=== PATIENT | male | born 1940 | race Caucasian/White ===

== ENCOUNTER 2016-08-19 12:45 | Inpatient (IN) | payer MEDICARE, OTHER ==
[~2016-08-19] VITALS: Ht 157.5 cm; Wt 64.2 kg
[2016-08-19] MEDS ORDERED: SOD CHLORIDE 0.9% 500 ML IV STA (13:07)
[2016-08-19] MEDS ORDERED: RAMI5CAP46 PO (13:19)
[2016-08-19 13:26] LABS: ADD SCAN DIFF NO
[2016-08-19 13:30] LABS: ABNORMAL IP MESSAGE 1; HEMATOCRIT 21.4 % (42.0-52.0); MEAN CORPUSCULAR HEMOGLOBIN 18.1 pg (29.0-33.0); MEAN CORPUSCULAR HGB CONC 27.6 g/dl (32.0-37.0); MEAN CORPUSCULAR VOLUME 65.6 fl (82.0-101.0); MEAN PLATELET VOLUME 8.4 fl (7.4-10.4); PLATELET COUNT 700 10^3/UL (140-415); RED BLOOD COUNT 3.26 10^6/ul (4.70-6.10); RED CELL DISTRIBUTION WIDTH 19.2 % (11.5-14.5)
[2016-08-19 13:37] LABS: HEMOGLOBIN 5.9 g/dl (14.0-18.0)
[2016-08-19 13:39] LABS: ALBUMIN 2.8 g/dl (3.3-4.9); CHLORIDE 97 mmol/L (97-110); SODIUM 126 mmol/L (135-144)
[2016-08-19 13:39] LABS: ADD UMIC YES; URINE BILIRUBIN (Dip) 1+ (NEGATIVE); URINE BLOOD (Dip) NEGATIVE (NEGATIVE); URINE COLOR YELLOW (YELLOW); URINE GLUCOSE (Dip) NEGATIVE (NEGATIVE); URINE KETONES (Dip) NEGATIVE (NEGATIVE); URINE LEUKOCYTE ESTERASE (Dip) 1+ (NEGATIVE); URINE NITRITE (Dip) NEGATIVE (NEGATIVE); URINE TOTAL PROTEIN (Dip) TRACE (NEGATIVE); URINE UROBILINOGEN (Dip) >8.0 E.U./dL (0.1-1.0)
[2016-08-19 13:40] LABS: POTASSIUM 3.6 mmol/L (3.5-5.1)
[2016-08-19 13:42] LABS: ALANINE AMINOTRANSFERASE 30 IU/L (13-69); ALBUMIN/GLOBULIN RATIO 0.84; ALKALINE PHOSPHATASE 220 IU/L (42-121); ANION GAP 8 (8-16); ASPARTATE AMINO TRANSFERASE 43 IU/L (15-46); BILIRUBIN,INDIRECT 0.5 mg/dl (0-1.1); BILIRUBIN,TOTAL 0.5 mg/dl (0.2-1.3); BLOOD UREA NITROGEN 8 mg/dl (7-20); CALCIUM 7.3 mg/dl (8.4-10.2); CARBON DIOXIDE 25 mmol/L (21-31); CREATININE 0.52 mg/dl (0.61-1.24); GLUCOSE 136 mg/dl (70-220); TOTAL PROTEIN 6.1 g/dl (6.1-8.1)
[2016-08-19 13:50] LABS: ICTOTEST NEGATIVE (NEGATIVE)
[2016-08-19 13:52] LABS: SQUAMOUS EPITHELIAL CELL,UR OCCASIONAL; URINE RBCS NONE SEEN /HPF (0)
[2016-08-19 13:54] LABS: TROPONIN-I < 0.012 ng/ml (0.00-0.12)
--- NOTE | 2016-08-19 13:54 | ERA ---
ER Documentation Chief Complaint Date/Time DATE: 08/19/16 TIME: 13:53 Chief Complaint gen weakness and more lethargic for the past 2 wks progressively worse HPI 76-year-old man brought in by family members for 2 weeks of generalized weakness , dizziness, peripheral edema, and recent mild confusion. Patient has a history of alcoholism and drinks alcohol daily. Patient and family members deny recent melena or blood per rectum, no vomiting or diarrhea, no complaints of chest pain or shortness of breath, no loss of consciousness. Patient has no history of anemia or blood transfusion. ROS All systems reviewed and are negative except as per history of present illness. Medications Home Meds Reported Medications Ramipril (Ramipril) Unknown Strength Capsule, PO DAILY, CAP 08/19/16 Allergies Allergies: Coded Allergies: No Known Allergy (Unverified , 08/19/16) PMhx/Soc Alcoholism, hypertension Medical and Surgical Hx: pt denies Medical Hx, pt denies Surgical Hx History of Surgery: No Anesthesia Reaction: No Hx Neurological Disorder: No Hx Respiratory Disorders: No Hx Cardiac Disorders: Yes (htn) Hx Psychiatric Problems: No Hx Miscellaneous Medical Probl: No Hx Alcohol Use: Yes Hx Substance Use: No Hx Tobacco Use: No Smoking Status: Never smoker FmHx Family History: No diabetes Physical Exam Vitals Vital Signs Date Time Temp Pulse Resp B/P Pulse Ox O2 Delivery O2 Flow Rate FiO2 08/19/16 12:53 98.9 105 22 123/58 100 Physical Exam GENERAL: Well-developed, well-nourished, appears dehydrated HEENT: Dry mucous membranes, pale conjunctiva, no cervical spine tenderness or step-off deformities, no goiter, extraocular movements intact without pain. No submandibular induration, and no pharyngeal erythema NEURO: Alert and oriented 3, cranial nerves II through XII intact bilaterally, pupils equal round reactive to light, no focal deficits or facial asymmetry, sensation intact distally Strength 5/5 in upper and lower extremities bilaterally CARDIAC: Tachycardic and regular, no murmurs rubs or gallops LUNGS: Clear bilaterally no wheezing crackles or stridor ABDOMEN: Positive hepatomegaly, nontender abdomen, normoactive bowel sounds SKIN: Warm and dry to touch, no abrasions, contusions, or hematomas, no lacerations, no ecchymosis, no target lesions, and without ulcers EXTREMITIES: No clubbing cyanosis, 3+ pitting edema to the lower extremities bilaterally, calves are bilaterally symmetrical, no Homans sign, no popliteal cord sign. Distal pulses equal and bilateral PSYCH: Normal affect without agitation or irritability Result Diagram: 08/19/16 1320 08/19/16 1320 Results 24 hrs Laboratory Tests Test 08/19/16 13:20 08/19/16 13:30 White Blood Count 14.010^3/ul Red Blood Count 3.2610^6/ul Hemoglobin 5.9g/dl Hematocrit 21.4% Mean Corpuscular Volume 65.6fl Mean Corpuscular Hemoglobin 18.1pg Mean Corpuscular Hemoglobin Concent 27.6g/dl Red Cell Distribution Width 19.2% Platelet Count 72685^3/UL Mean Platelet Volume 8.4fl Neutrophils % 81.2% Lymphocytes % 6.8% Monocytes % 9.8% Eosinophils % 1.1% Basophils % 0.5% Nucleated Red Blood Cells % 0.1/100WBC Neutrophils # 11.410^3/ul Lymphocytes # 1.010^3/ul Monocytes # 1.410^3/ul Eosinophils # 0.210^3/ul Basophils # 0.110^3/ul Nucleated Red Blood Cells # 0.010^3/ul Prothrombin Time 15.1Sec Prothrombin Time Ratio 1.2 INR International Normalized Ratio 1.18 Activated Partial Thromboplast Time 32.2Sec Sodium Level 126mmol/L Potassium Level 3.6mmol/L Chloride Level 97mmol/L Carbon Dioxide Level 25mmol/L Anion Gap 8 Blood Urea Nitrogen 8mg/dl Creatinine 0.52mg/dl Glucose Level 136mg/dl Calcium Level 7.3mg/dl Iron Level < 10ug/dl Total Iron Binding Capacity 358ug/dl Percent Iron Saturation % SAT Total Bilirubin 0.5mg/dl Direct Bilirubin 0.00mg/dl Indirect Bilirubin 0.5mg/dl Aspartate Amino Transf (AST/SGOT) 43IU/L Alanine Aminotransferase (ALT/SGPT) 30IU/L Alkaline Phosphatase 220IU/L Troponin I < 0.012ng/ml Total Protein 6.1g/dl Albumin 2.8g/dl Globulin 3.30g/dl Albumin/Globulin Ratio 0.84 Lipase 24U/L Urine Color YELLOW Urine Clarity CLEAR Urine pH 6.5 Urine Specific [place] 1.020 Urine Ketones NEGATIVE Urine Nitrite NEGATIVE Urine Bilirubin 1+ Urine Ictotest NEGATIVE Urine Urobilinogen >8.0 E.U./dL Urine Leukocyte Esterase 1+ Urine Microscopic RBC NONE SEEN/HPF Urine Microscopic WBC 0-2/HPF Urine Squamous Epithelial Cells OCCASIONAL Urine Hemoglobin NEGATIVE Urine Glucose NEGATIVE% Urine Total Protein TRACE Current Medications Medications (Trade) Dose Ordered Sig/Joleen Route PRN Reason Start Time Stop Time Status Last Admin Dose Admin Sodium Chloride (NS) 500 ml @ 500 mls/hr Q1H STAT IV 08/19/16 13:07 08/19/16 14:06 DC 08/19/16 13:53 Procedures/MDM IV line was established patient was placed on site monitor rhythm strip revealed a tachycardia at 100 bpm with upright P and T waves. Patient was afebrile. I administered 500 cc normal saline intravenously. EKG performed, read by me revealed a sinus tachycardia with multiple premature atrial contractions, normal axis, narrow QRS complex, no concerning ST elevations or depressions noted. CBC revealed severe anemia with a hematocrit of 21, electrolytes were unremarkable, liver function tests are normal although alkaline phosphatase is elevated, troponin was negative. Urine analysis was unremarkable. I ordered type and screen and IV PRBC transfusion of 2 units over 4 hours. Critical Care: Time: 40 minutes, this was time separate from other procedures. Treatments/Evaluations: Close monitoring and treatment of unstable vital signs, cardiorespiratory, and neurologic status, while maintaining tight balance of fluid, respiratory, and cardiac interventions. Patient will be admitted for most likely cirrhosis and severe anemia, given alkaline phosphatase elevation biliary disease is also a possibility although further imaging will be deferred to admitting team. Departure Diagnosis: Primary Impression: Decompensated liver disease Additional Impressions: Anemia Qualified Code: D64.9 - Anemia, unspecified type Dehydration Near syncope Anasarca Alcoholism Condition: GLORIA Torres MD Aug 19, 2016 13:54
--- NOTE | 2016-08-19 14:34 | RADRPT ---
PROCEDURE: XR Chest. CLINICAL INDICATION: Shortness of breath TECHNIQUE: An AP view of the chest was obtained. COMPARISON: No prior exam is available for comparison. FINDINGS: There is prominence of the interstitial markings. No pleural effusion or pneumothorax is seen. Th e cardiomediastinal silhouette is mildly enlarged . Calcifications are seen within the aortic arch. The osseous structures demonstrate senescent changes. IMPRESSION: 1. Mild prominence of the interstitial markings, may reflect mild underlying interstitial edema or chronic lung changes. 2. Mild cardiomegaly and aortic atherosclerosis. RPTAT: HH .Wolf Hussein MD, MD Date Time Electronically viewed and signed by .Wolf Hussein MD, on 08/19/2016 14:33 .W/
[2016-08-19] MEDS ORDERED: ONDANSETRON 4 MG INJ IV PRN (16:30)
[2016-08-19] MEDS ORDERED: DOCUSATE SODIUM 100 MG CAP PO PRN (16:30)
[2016-08-19] MEDS ORDERED: ZOLPIDEM 5 MG TAB PO PRN (16:30)
[2016-08-19] MEDS ORDERED: NACL 0.9% 3 ML SYG IV SCH (16:30)
[2016-08-19] MEDS ORDERED: morphine 2 MG INJ IV PRN (16:30)
[2016-08-19] MEDS ORDERED: LORAZEPAM 2 MG INJ IV PRN (16:30)
[2016-08-19 16:49] LABS: INR 1.18; PARTIAL THROMBOPLASTIN TIME 32.2 Sec (25.0-35.0); PROTIME 15.1 Sec (12.2-14.2); PT RATIO 1.2
[2016-08-19 16:55] LABS: IRON < 10 ug/dl (35-150)
[2016-08-19 16:59] LABS: TOTAL IRON BINDING CAPACITY 358 ug/dl (241-421)
--- NOTE | 2016-08-19 17:20 | HP ---
DATE OF ADMISSION: 08/19/2016 CHIEF COMPLAINT: Fatigue, lower extremity swelling. HISTORY OF PRESENT ILLNESS: The patient is a 76-year-old male with a history of alcohol abuse the p ast 2 to 3 years. The patient is a daily drinker. He has a history of hypertension but is noncompl iant with his hypertension medication. The patient was brought in by son, who states that the patie nt has been more pale as well as fatigued and has more lower extremity swelling. The patient also h as abdominal distention. In the ED, the patient was found to have a hemoglobin 5.9. He denies any melena, any misa red blood in the stool. He denies any upper GI bleeding, any nausea, vomiting. T he patient has no other complaints at this time. PAST MEDICAL HISTORY: Hypertension and alcohol abuse. PAST SURGICAL HISTORY: Denies. HOME MEDICATIONS: None at this time. ALLERGIES: NO KNOWN DRUG ALLERGIES. FAMILY HISTORY: Denies. SOCIAL HISTORY: No tobacco abuse, no drug abuse. Alcohol abuse for the past 2 to 3 years. REVIEW OF SYSTEMS: A 12-point review of systems negative except that discussed in HPI. PHYSICAL EXAMINATION: VITAL SIGNS: Temperature is ____, pulse 105, respiratory rate is 22, BP is 123/58, saturation 100% on room air. GENERAL: No acute distress but somewhat anxious. HEENT: Normocephalic, atraumatic. CHEST: Clear to auscultation. CARDIOVASCULAR: Regular rate, rhythm. ABDOMEN: Distended, nontender, soft. EXTREMITIES: No clubbing, cyanosis, edema. LABORATORIES: White count is 14.0, hemoglobin is 5.9, MCV 65.6, platelets are 700. Chemistry: Sod ium 126, creatinine is 0.52, calcium 7.3, alkaline phosphatase is 220. UA is within normal limits e xcept for 1+ bilirubin, 1+ leukocyte esterase. DIAGNOSTICS: Chest x-ray shows mild prominence of interstitial markings, may reflect mild underlyin g interstitial edema or chronic lung changes; mild cardiomegaly; aortic atherosclerosis. ASSESSMENT AND PLAN: 1. Severe microcytic anemia. The patient is symptomatic. Will transfuse 2 units of packed red blo od cells. Will check a stool occult blood. Will get a GI consultation to evaluate for GI causes of anemia. Will check an iron panel. 2. Alcohol abuse. The patient has been drinking for the past several years. Will give Librium, ba vernon bag and Ativan p.r.n. 3. Hyponatremia, likely secondary to cirrhosis. 4. Anasarca. The patient's abdomen is distended, lower extremities are mildly edematous. Will obt ain abdominal ultrasound to evaluate for cirrhosis as well as ascites. Will also check hepatitis pa yayo. 5. Prophylaxis: SCDs. Dictated By: WIL SCHWARZ MD BS/NTS Conf#: [id number] DID#: [id number]
[2016-08-19 18:09] VITALS: TEMP 97.8
--- NOTE | 2016-08-19 18:17 | RADRPT ---
PROCEDURE: US Abdomen. CLINICAL INDICATION: Cirrhosis and ascites evaluation. TECHNIQUE: Multiple real-time images were acquired of the patient's abdomen and retroperitoneum ut ilizing a high resolution transducer. COMPARISON: None FINDINGS: There is moderate intra-abdominal ascites. The liver has a micronodular border suspicious for cirrh osis. There are benign hepatic cysts present. A 1.8 x 1.4 x 1.3 cm benign cyst is noted in the left lobe of the liver. A 4.5 by 4.6 x 4.2 cm benign hepatic cyst is noted in the right lobe of the arnie er near the gallbladder. No solid hepatic mass or intrahepatic biliary ductal dilatation is identif ied. Hepatopedal blood flow is identified in the portal vein. The gallbladder wall is thickened. Measuring 3.8 mm. The gallbladder is contracted and contains se veral gallstones. The main portal vein is patent. The common bile duct is not evaluated. The pancreas is also obscured by bowel gas. The right kidney measures 9.8 cm in length and is unremarkable. IMPRESSION: 1. Cirrhosis of the liver with ascites. 2. Benign hepatic cysts are identified. No solid hepatic mass is identified. 3. Cholelithiasis with gallbladder wall thickening. This may be the result of a contracted gallbla dder. Clinical correlation is needed. The technologist did not report that there was a positive or negative Cueva's sign. 4. Normal right kidney. RPTAT:AAJJ Physician Zenobia Date Time Electronically viewed and signed by Physician Zenobia on 08/19/2016 18:17 ROSAMARIA/
--- NOTE | 2016-08-19 18:36 | CONS ---
Date/Time of Note Date/Time of Note DATE: 08/19/16 TIME: 18:19 Assessment/Plan Assessment/Plan Additional Assessment/Plan Assessment * Anemia symptomatic * R/O upper gi bleed vs iron deficiency anemia vs tumors vs others * R/O lower gi bleed * Alcohol abuse. * Hyponatremia * Anasarca .r/o cirrhosis Plan EGD 08/20/2016 ,risk and benefits explained to the patient and family agreed with the procedure Hepatitis panel PPI Awaiting hepatobiliary ultrasound Correct hyponatremia Consultation Date/Type/Reason Admit Date/Time Date of Consultation: Aug 19, 2016 Type of Consultation: Gastroenterology Reason for Consultation anemia Referring Provider: WIL SCHWARZ of Present Illness 76 year old male with history of hypertension ,and alcohol abuse in the past 3 years referred for evaluation of anemia.Patient was brought to er by his family because of non compliant of taking hypertensive medications and looks weak,pale and distended abdomen.HE denies any history of hematemesis,melena nor hematochezia nor any history of colonoscopy..Hemoglobin was 5.9 at the er , blood transfusion was started at the ER.The relative made aware of the plan to do EGD tomorrow and agreed with the plan procedure. Constitutional: improved, no complaints Eyes: no complaints ENT: no complaints Respiratory: no complaints Cardiovascular: edema, No orthopenea, No palpitations Gastrointestinal: flatus, other (abdominal distension), passing stool, No blood, No constipation, No diarrhea, No nausea, No vomiting Genitourinary: no complaints Musculoskeletal: no complaints Skin: no complaints Neurologic: no complaints Endocrine: no complaints Lymphatic: no complaints Psychological: nl mood/affect, no complaints Immunologic: no complaints Past Medical History Medical History: hypertension Past Surgical History Past Surgical Hx: no surgical history Social History Alcohol Use: heavy (the past 2-3 years) Smoking Status: Never smoker Exam/Review of Systems Vital Signs Vitals Vital Signs Date Time Temp Pulse Resp B/P Pulse Ox O2 Delivery O2 Flow Rate FiO2 08/19/16 18:09 97.8 91 18 136/65 100 Nasal Cannula 2.0 Exam Constitutional: alert, oriented, well developed Psych: nl mood/affect, no complaints Head: atraumatic, normocephalic Eyes: EOMI, PERRL, nl conjunctiva, nl lids, nl sclera ENMT: nl external ears & nose, nl lips & teeth, nl nasal mucosa & septum Neck: non-tender, supple Respiratory: clear to auscultation, normal air movement Cardiovascular: edema (pitting edema), nl pulses, regular rate and rhythm Gastrointestinal: bowel sounds, distended, nl liver, spleen, non-tender, soft, No firm, No hepatomegaly, No mass, No rebound or guarding Musculoskeletal: nl extremities to inspection, nl gait and stance Extremities: normal pulses Neurological: [employer]S II-XII intact, nl mental status, nl speech, nl strength Skin: nl turgor, No rash or lesions Lymph: nl lymph nodes Results Result Diagram: 08/19/16 1320 08/19/16 1320 Results 24 hrs Laboratory Tests Test 08/19/16 13:20 08/19/16 13:30 08/19/16 13:55 White Blood Count 14.0 H Red Blood Count 3.26 L Hemoglobin 5.9 *L Hematocrit 21.4 L Mean Corpuscular Volume 65.6 L Mean Corpuscular Hemoglobin 18.1 L Mean Corpuscular Hemoglobin Concent 27.6 L Red Cell Distribution Width 19.2 H Platelet Count 700 H Mean Platelet Volume 8.4 Neutrophils % 81.2 H Lymphocytes % 6.8 L Monocytes % 9.8 Eosinophils % 1.1 Basophils % 0.5 Nucleated Red Blood Cells % 0.1 H Neutrophils # 11.4 H Lymphocytes # 1.0 Monocytes # 1.4 H Eosinophils # 0.2 Basophils # 0.1 Nucleated Red Blood Cells # 0.0 Prothrombin Time 15.1 H Prothrombin Time Ratio 1.2 INR International Normalized Ratio 1.18 Activated Partial Thromboplast Time 32.2 Sodium Level 126 L Potassium Level 3.6 Chloride Level 97 Carbon Dioxide Level 25 Anion Gap 8 Blood Urea Nitrogen 8 Creatinine 0.52 L Glucose Level 136 Calcium Level 7.3 L Iron Level < 10 L Total Iron Binding Capacity 358 Percent Iron Saturation Total Bilirubin 0.5 Direct Bilirubin 0.00 Indirect Bilirubin 0.5 Aspartate Amino Transf (AST/SGOT) 43 Alanine Aminotransferase (ALT/SGPT) 30 Alkaline Phosphatase 220 H Troponin I < 0.012 Total Protein 6.1 Albumin 2.8 L Globulin 3.30 H Albumin/Globulin Ratio 0.84 Lipase 24 Urine Color YELLOW Urine Clarity CLEAR Urine pH 6.5 Urine Specific [place] 1.020 Urine Ketones NEGATIVE Urine Nitrite NEGATIVE Urine Bilirubin 1+ H Urine Ictotest NEGATIVE Urine Urobilinogen >8.0 E.U./dL H Urine Leukocyte Esterase 1+ H Urine Microscopic RBC NONE SEEN Urine Microscopic WBC 0-2 Urine Squamous Epithelial Cells OCCASIONAL Urine Hemoglobin NEGATIVE Urine Glucose NEGATIVE Urine Total Protein TRACE Ammonia < 9 L Medications Medications Current Medications Ondansetron HCl (Zofran Inj) 4 mg Q6H PRN IV NAUSEA AND/OR VOMITING; Start at 16:30 Morphine Sulfate (morphine) 2 mg Q4H PRN IV SEVERE PAIN LEVEL 7-10; Start 08/19 at 16:30 Docusate Sodium (Colace) 100 mg Q12H PRN PO CONSTIPATION; Start 08/19/16 at 16: 30 Zolpidem Tartrate (Ambien) 5 mg QHS PRN PO SLEEP; Start 08/19/16 at 16:30 Pantoprazole 40 mg 40 mg DAILY@06 IV ; Start 08/20/16 at 06:00 Multivitamins/ Thiamine HCl/ Folic Acid/Sodium Chloride (Mvi-12 Adult/ Vitamin B1/Folic Acid/NS) 1,011.2 ml @ 125 mls/ hr DAILY@09 IVPB ; Start 08/20/16 at 09 :00 Lorazepam (Ativan) 1 mg Q4H PRN IV AGITATION/ANXIETY; Start 08/19/16 at 16:30 Chlordiazepoxide (Librium) 25 mg TID PO ; Start 08/19/16 at 21:00 TIMMY CAMPUZANO MD Aug 19, 2016 18:35
[2016-08-19 18:45] VITALS: BP 128/69; PULSE 88; RESP 18; Ht 157.5 cm; Wt 64.2 kg
[2016-08-19 19:20] VITALS: PULSE 81
[2016-08-19 20:15] VITALS: PULSE 85
[2016-08-19 20:20] VITALS: BP 128/69; RESP 18
[2016-08-19] MEDS ORDERED: CHLORDIAZEPOXIDE 25 MG CAP PO SCH (21:00)
[2016-08-20 00:24] VITALS: BP 121/71; RESP 18
[2016-08-20 00:31] VITALS: PULSE 97
[2016-08-20 04:25] VITALS: BP 124/70; RESP 16
[2016-08-20 04:30] VITALS: PULSE 91
[2016-08-20] MEDS ORDERED: PANTOPRAZOLE 40 MG INJ IV SCH (06:00)
[2016-08-20 07:58] VITALS: BP 114/59; RESP 19
[2016-08-20 08:19] LABS: ADD SCAN DIFF NO
[2016-08-20 08:21] LABS: BASOPHIL # 0.1 10^3/ul (0.0-0.1); BASOPHILS % 0.7 % (0.0-2.0); EOSINOPHILS # 0.3 10^3/ul (0.0-0.5); EOSINOPHILS % 2.3 % (0.0-7.0); HEMATOCRIT 26.5 % (42.0-52.0); HEMOGLOBIN 7.9 g/dl (14.0-18.0); LYMPHOCYTES % 7.9 % (15.0-51.0); MEAN CORPUSCULAR HEMOGLOBIN 21.2 pg (29.0-33.0); MEAN CORPUSCULAR HGB CONC 29.8 g/dl (32.0-37.0); MEAN PLATELET VOLUME 8.8 fl (7.4-10.4); MONOCYTE # 1.4 10^3/ul (0.3-0.9); MONOCYTES % 10.4 % (0.0-11.0); NEUTROPHIL # 10.2 10^3/ul (1.6-7.5); NUCLEATED RED BLOOD CELLS% 0.3 /100WBC (0.0-0.0); PLATELET COUNT 624 10^3/UL (140-415); RED BLOOD COUNT 3.73 10^6/ul (4.70-6.10); RED CELL DISTRIBUTION WIDTH 21.4 % (11.5-14.5)
[2016-08-20 08:30] VITALS: PULSE 81
[2016-08-20 08:43] LABS: ALBUMIN 2.2 g/dl (3.3-4.9)
[2016-08-20 08:44] LABS: POTASSIUM 3.4 mmol/L (3.5-5.1)
[2016-08-20 08:46] LABS: BILIRUBIN,INDIRECT 1.2 mg/dl (0-1.1); BILIRUBIN,TOTAL 1.2 mg/dl (0.2-1.3); CREATININE 0.49 mg/dl (0.61-1.24); TOTAL PROTEIN 5.1 g/dl (6.1-8.1)
[2016-08-20 08:47] LABS: ALBUMIN/GLOBULIN RATIO 0.75; CHOL/HDL RATIO 2.8 RATIO; PHOSPHORUS 2.5 mg/dl (2.5-4.9)
[2016-08-20] MEDS ORDERED: MULTIVITAMINS 10 ML, THIAMINE 100 MG, FOLIC ACID 1 MG in SOD CHLORIDE 0.9% 1,000 ML IVPB SCH (09:00)
--- NOTE | 2016-08-20 10:18 | CONS ---
Date/Time of Note Date/Time of Note DATE: 08/20/16 TIME: 10:16 Assessment/Plan Assessment/Plan Additional Assessment/Plan Assessment * Anemia symptomatic * R/O upper gi bleed vs iron deficiency anemia vs tumors vs others * R/O lower gi bleed * Alcohol abuse. * Hyponatremia * Anasarca .r/o cirrhosis Plan EGD 08/20/2016 ,risk and benefits explained to the patient and family agreed with the procedure Hepatitis panel PPI Awaiting hepatobiliary ultrasound Correct hyponatremia Consultation Date/Type/Reason Admit Date/Time Aug 19, 2016 at 13:52 Initial Consult Date 08/19/16 Type of Consultation: Gastroenterology Referring Provider: WIL SCHWARZ 24 HR Interval Summary Free Text/Dictation Spoke to patient's daughter Advised patient daughter of risks/benefits/alternatives to procedure and she declines to provide informed consent for procedure Explained to patient risks of leaving AMA Explained possibility of GI bleed not been addressed and worsening of anemia Patient's daughter states understanding and continues to want to leave AMA Advised the nurse of patient's daughter's wishes Exam/Review of Systems Vital Signs Vitals Vital Signs Date Time Temp Pulse Resp B/P Pulse Ox O2 Delivery O2 Flow Rate FiO2 08/20/16 08:30 81 08/20/16 07:58 98.6 19 114/59 98 08/19/16 18:45 Nasal Cannula 2.0 Exam Constitutional: alert, oriented, well developed Psych: nl mood/affect, no complaints Head: atraumatic, normocephalic Eyes: EOMI, PERRL, nl conjunctiva, nl lids, nl sclera ENMT: nl external ears & nose, nl lips & teeth, nl nasal mucosa & septum Neck: non-tender, supple Respiratory: clear to auscultation, normal air movement Cardiovascular: edema (pitting edema), nl pulses, regular rate and rhythm Gastrointestinal: bowel sounds, distended, nl liver, spleen, non-tender, soft, No firm, No hepatomegaly, No mass, No rebound or guarding Musculoskeletal: nl extremities to inspection, nl gait and stance Extremities: normal pulses 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, nl mental status, nl speech, nl strength Skin: nl turgor, No rash or lesions Lymph: nl lymph nodes Results Result Diagram: 08/20/16 0715 08/20/1615 Results 24 hrs Laboratory Tests Test 08/19/16 13:20 08/19/16 13:30 08/19/16 13:55 08/20/16 07:15 White Blood Count 14.0 H 13.0 H Red Blood Count 3.26 L 3.73 L Hemoglobin 5.9 *L 7.9 #L Hematocrit 21.4 L 26.5 #L Mean Corpuscular Volume 65.6 L 71.0 L Mean Corpuscular Hemoglobin 18.1 L 21.2 L Mean Corpuscular Hemoglobin Concent 27.6 L 29.8 L Red Cell Distribution Width 19.2 H 21.4 H Platelet Count 700 H 624 H Mean Platelet Volume 8.4 8.8 Neutrophils % 81.2 H 78.0 H Lymphocytes % 6.8 L 7.9 L Monocytes % 9.8 10.4 Eosinophils % 1.1 2.3 Basophils % 0.5 0.7 Nucleated Red Blood Cells % 0.1 H 0.3 H Neutrophils # 11.4 H 10.2 H Lymphocytes # 1.0 1.0 Monocytes # 1.4 H 1.4 H Eosinophils # 0.2 0.3 Basophils # 0.1 0.1 Nucleated Red Blood Cells # 0.0 0.0 Prothrombin Time 15.1 H Prothrombin Time Ratio 1.2 INR International Normalized Ratio 1.18 Activated Partial Thromboplast Time 32.2 Sodium Level 126 L 130 L Potassium Level 3.6 3.4 L Chloride Level 97 101 Carbon Dioxide Level 25 25 Anion Gap 8 7 L Blood Urea Nitrogen 8 7 Creatinine 0.52 L 0.49 L Glucose Level 136 88 # Calcium Level 7.3 L 7.0 L Iron Level < 10 L Total Iron Binding Capacity 358 Percent Iron Saturation Total Bilirubin 0.5 1.2 Direct Bilirubin 0.00 0.00 Indirect Bilirubin 0.5 1.2 H Aspartate Amino Transf (AST/SGOT) 43 38 Alanine Aminotransferase (ALT/SGPT) 30 30 Alkaline Phosphatase 220 H 173 H Troponin I < 0.012 Total Protein 6.1 5.1 #L Albumin 2.8 L 2.2 L Globulin 3.30 H 2.90 Albumin/Globulin Ratio 0.84 0.75 Lipase 24 Urine Color YELLOW Urine Clarity CLEAR Urine pH 6.5 Urine Specific [place] 1.020 Urine Ketones NEGATIVE Urine Nitrite NEGATIVE Urine Bilirubin 1+ H Urine Ictotest NEGATIVE Urine Urobilinogen >8.0 E.U./dL H Urine Leukocyte Esterase 1+ H Urine Microscopic RBC NONE SEEN Urine Microscopic WBC 0-2 Urine Squamous Epithelial Cells OCCASIONAL Urine Hemoglobin NEGATIVE Urine Glucose NEGATIVE Urine Total Protein TRACE Ammonia < 9 L Hemoglobin A1c 5.1 Phosphorus Level 2.5 Magnesium Level 2.0 Triglycerides Level 56 Cholesterol Level 74 L LDL Cholesterol, Calculated 37 HDL Cholesterol 26 L Cholesterol/HDL Ratio 2.8 DANNI SOUTH Aug 20, 2016 10:18
--- NOTE | 2016-08-20 15:04 | DS ---
DATE OF ADMISSION: 08/19/2016 DATE OF DISCHARGE: 08/20/2016 The patient left AMA on 08/20/2016 DISCHARGE DIAGNOSES: 1. Severe anemia. The patient was supposed to get esophagogastroduodenoscopy, but left against med ical advice. 2. Alcohol abuse. Patient left against medical advice. 3. Anasarca. The patient did have abdominal ultrasound that showed cirrhosis of the liver with asc ites. 4. Benign hepatic cysts were identified. No solid hepatic mass identified. HOSPITAL COURSE: The patient is a 76-year-old male with a history of hypertension and alcohol abuse . The patient presented with fatigue and lower extremity swelling. The patient was found to be sev erely anemic with a hemoglobin of 5.9. The patient did have a GI consult was supposed to get an EGD . The patient did have an abdominal ultrasound as he did not have a formal diagnosis of cirrhosis. Abdominal ultrasound did show cirrhosis of the liver with ascites. The patient had a benign hepati c cyst. No solid hepatic mass was identified. Patient had cholelithiasis with gallbladder wall thi ckening, but this could be result of contracted gallbladder. Chest x-ray was done that showed likel y chronic lung changes with possible interstitial edema. There was some mild cardiomegaly. The pat ient was given 2 units of packed red blood cells. The patient was seen by GI and was supposed to ge t an EGD, but patient did not want to have the procedure done and decided to leave AMA. Patient was not seen by myself on day of discharge. DISPOSITION: Unknown as the patient left AMA. MEDICATIONS: No medications were prescribed as the patient left AMA. FOLLOWUP: No followup instructions were given as the patient left AMA. Dictated By: WIL SCHWARZ MD BS/NTS Conf#: [id number] DID#: [id number]
[2016-08-22] MEDS ORDERED: INFLUENZA VIRUS VACCINE 0.5 ML (DISPENSING) IM* ONE (09:00)
[2016-08-23 07:30] LABS: BASOPHIL # 0.6 10^3/ul (0.0-0.1); EOSINOPHILS # 0.1 10^3/ul (0.0-0.5); LYMPHOCYTES # 1.1 10^3/ul (0.8-2.9); MONOCYTE # 0.6 10^3/ul (0.3-0.9); NEUTROPHIL # 11.6 10^3/ul (1.6-7.5); NUCLEATED RED BLOOD CELLS% 0.1 /100WBC (0.0-0.0)
[2016-08-23 07:31] LABS: OVALOCYTES OCCASIONAL; SPHEROCYTES 1+
[2016-08-23 07:32] LABS: TOTAL CELLS COUNTED % 100
== END 2016-08-20 10:10 | disposition left against medical advice (07) | DRG 812 ==
LOC: E/R 12:45 → MS4 13:52
PROVIDERS: ADMIT Family Medicine; ATTEND Family Medicine
PROC: 30233N1 Transfusion of Nonautologous Red Blood Cells into Peripheral Vein, Percutaneous Approach (ICD-10-PCS; principal; 2016-08-19)
DX: D50.9 Iron deficiency anemia, unspecified (principal); K76.89 Other specified diseases of liver; E87.1 Hypo-osmolality and hyponatremia; I10 Essential (primary) hypertension; Z91.14 Patient's other noncompliance with medication regimen; F10.10 Alcohol abuse, uncomplicated; R60.1 Generalized edema; I51.7 Cardiomegaly; R91.8 Other nonspecific abnormal finding of lung field; K80.20 Calculus of gallbladder without cholecystitis without obstruction
CPT/HCPCS: 36430; 71010; 76705; 80053; 80061; 81001; 81003; 82140; 83036; 83540; 83690; 83735; 84100; 84484; 85025; 85610; 85730; 86850; 86900; 86901; 86920; 93005; C9113; J3411; J7030; J7040; P9016